=== PATIENT | female | born 2000 | race Hispanic/Latino ===

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

== ENCOUNTER 2020-03-20 00:27 | Emergency (ER) | payer OTHER ==
[2020-03-20] MEDS ORDERED: Acetaminophen 500 MG TAB ONE (02:01)
== END 2020-03-20 02:05 | disposition home or self-care (01) ==
LOC: ERS 00:27
DX: J02.9 Acute pharyngitis, unspecified (principal)
CPT/HCPCS: 87081; 87430; 99283

== ENCOUNTER 2020-03-25 00:16 | Emergency (ER) | payer BC, OTHER ==
[2020-03-25 01:03] LABS: #Basophils 0.1 thou/uL (0.0-0.2); #Eosinphils 0.1 thou/uL (0.0-0.7); #Lymphocytes 2.3 thou/uL (1.20-3.40); #Neutrophils 6.3 thou/uL (1.40-6.50); %Basophils 0.9 % (0.0-1.0); %Eosinophils 0.6 % (0.0-10.0); %Lymphocytes 23.3 % (28.0-48.0); %Neutrophils 65.2 % (31.0-61.0); Hemoglobin 13.7 g/dL (12.0-16.0); Mean Corpuscular HGB CONC 33.1 g/dL (32.0-36.0); Mean Corpuscular Hemoglobin 31.3 pg (25.0-35.0); Mean Corpuscular Volume 94.7 fL (78.0-98.0); Mean Platelet Volume 8.2 fL (7.4-10.4); Platelet Count 344 thou/uL (130-400); RBC Distribution Width 11.7 % (11.5-14.5); Red Blood Cell (RBC) Count 4.38 mill/uL (4.00-5.20); White Blood Cell (WBC) Count 9.7 thou/uL (4.8-10.8)
[2020-03-25] MEDS ORDERED: Lidocaine 1% w/Epinephrine 1:100K 20 ML VIAL ONE (01:11)
[2020-03-25] MEDS ORDERED: Benzocaine 20% Spray 60 ML CAN ONE (01:11)
[2020-03-25] MEDS ORDERED: Ondansetron PF 4 MG/2 ML Vial ONE (01:11)
[2020-03-25] MEDS ORDERED: Midazolam HCl 2 mg/2 ml Vial ONE (01:11)
[2020-03-25] MEDS ORDERED: Morphine 4 MG/ML VIAL ONE (01:11)
[2020-03-25 01:24] LABS: ALT (SGPT) 8 U/L (8-55); AST (SGOT) 13 U/L (5-30); Albumin 4.2 g/dL (3.5-5.0); Alkaline Phosphatase 83 U/L (40-100); Anion Gap 21 mmol/L (10-20); BUN (Urea Nitrogen) 14 mg/dL (8.4-21.0); Bilirubin, Total 0.6 mg/dL (0.2-1.2); Calc. Creatinine Clearance 0 mL/min (70-130); Calcium 9.5 mg/dL (7.8-10.44); Carbon Dioxide 18 mmol/L (22-29); Chloride 102 mmol/L (98-107); Estimated GFR-MDRD Greater than 90; Globulin 4.3 g/dL (2.4-3.5); Glucose 86 mg/dL (70-105); Potassium 3.5 mmol/L (3.5-5.1); Protein, Total 8.5 g/dL (6.0-8.3); Sodium 137 mmol/L (136-145)
--- NOTE | 2020-03-25 07:51 | CT ---
PRELIMINARY REPORT/[facility]/EMERGENCY AFTER HOURS PROCEDURE EXAM: CT Neck with Intravenous Contrast. CLINICAL HISTORY: 19-year-old female patient presents ER with complaint of sore throat for the last 2 weeks. The patien t reports she was previously seen in the ER and diagnosed with viral pharyngitis. Patient reports she is gotten progressively worse and she was seen at the [facility] ER this morning and was rep ortedly told that she had a negative strep test but likely still has strep and was given a shot of an antibiotic. Patient has not been taking any oral antibiotics. The patient reports she is having di fficulty talking, difficulty swallowing and worsening pain. Patient denies any fever, bodies, chills, nausea, vomiting, diarrhea, shortness of breath, or other symptoms at this time. TECHNIQUE: Axial computed tomography images of the neck with intravenous contrast. Sagittal and coronal reformat ions performed. CONTRAST: With; ISOVUE 370,100mL COMPARISON: None provided. FINDINGS: PHARYNX: 2.8 x 2.4 x 4.4 cm rim-enhancing fluid collection in the right tonsillar region which is compatible w ith a right peritonsillar abscess. There are small loculated components at the inferior and anterior aspects of the collection. LARYNX: The larynx is unremarkable. Normal epiglottis. RETROPHARYNGEAL SPACE: No retropharyngeal soft tissue swelling or gas. SALIVARY GLANDS: The parotid, submandibular, and sublingual glands are unremarkable. LYMPH NODES: Enlarged right level 2 lymph node measuring up to 1.1 cm in short axis. THYROID: The thyroid gland is unremarkable. No nodule. BONES: No acute osseous abnormality. IMPRESSION: 2.8 x 2.4 x 4.4 cm right peritonsillar abscess. There are small loculated components at the inferior and anterior aspects of the collection. Enlarged right level 2 lymph node measuring up to 1.1 cm in short axis, likely reactive. ELECTRONICALLY SIGNED BY: Kyleigh Patrick MD Mar 25, 2020 1:56:28 AM CDT This report is intended for review by the ordering physician only, in accordance of law. If you recei ve this report in error, please call [facility] at [phone]. FINAL REPORT Final report by Dr. Ken Emergency after-hours study CT neck soft tissues with contrast: 03/25/2020 1:28 AM HISTORY: 19-year-old female with sore throat FINDINGS: Agree with preliminary report by [facility]. IMPRESSION: Large right peritonsillar abscess. Transcribed Date/Time: 03/25/2020 8:31 AM
[2020-03-25] MEDS ORDERED: Iopamidol-370 76% 500 ML 1 ML ONE (15:05)
== END 2020-03-25 03:37 | disposition home or self-care (01) ==
LOC: ERS 00:16
DX: J36 Peritonsillar abscess (principal)
CPT/HCPCS: 36415; 42700; 70491; 80053; 85025; 87070; 87205; 96361; 96374; 96375; J2250; J2270; J2405; Q9967

== ENCOUNTER 2020-06-13 14:12 | Emergency (ER) | payer OTHER, BC ==
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
[2020-06-13 16:37] LABS: Bacteria/HPF None Seen HPF (None Seen); Bilirubin Negative (Negative); Blood, Urine Negative (Negative); Clarity Clear (Clear); Glucose, Urine (Dipstick) Normal (Negative); Ketone, Urine 40 mg/dL (Negative); Leukocyte 25 Leu/uL (Negative); Nitrite Negative (Negative); Protein, Urine (Dipstick) Negative (Neg-Trace); RBC/HPF 0-3 HPF (0-3); Specific Gravity, Urine 1.023 (1.002-1.036); Urobilinogen Normal mg/dL (Less than 2); WBC/HPF 0-3 HPF (0-3)
== END 2020-06-13 17:10 | disposition home or self-care (01) ==
LOC: ERS 14:12
DX: O9A.211 Injury, poisoning and certain other consequences of external causes complicating pregnancy, first trimester (principal); S16.1XXA Strain of muscle, fascia and tendon at neck level, initial encounter; O20.9 Hemorrhage in early pregnancy, unspecified; Z3A.01 Less than 8 weeks gestation of pregnancy; V89.2XXA Person injured in unspecified motor-vehicle accident, traffic, initial encounter
CPT/HCPCS: 36415; 76856; 81003; 81015; 84702; 86900; 86901